=== PATIENT | female | born 1960 | race Caucasian/White ===

== ENCOUNTER → 2017-06-23 | Outpatient (CLI) | payer OTHER, MEDICAID ==
[2016-03-19 21:09] VITALS: BP 112/83
[2017-06-23 10:27] LABS: ALANINE AMINOTRANSFERASE 24 Units/L (12-78); ALBUMIN 3.5 g/dL (3.4-5.0); ALKALINE PHOSPHATASE 99 Units/L (46-116); ASPARTATE AMINO TRANSFERASE 19 Units/L (15-37); BLOOD UREA NITROGEN 17 mg/dL (7-18); CARBON DIOXIDE 28.1 mmol/L (21-32); CHLORIDE 105 mmol/L (98-107); CHOL/HDL RATIO 4.5 (0.0-5.0); CHOLESTEROL 174 mg/dL (0-200); CREATININE 1.21 mg/dL (0.55-1.02); HDL CHOLESTEROL 39 mg/dL (40-60); SODIUM 143 mmol/L (136-145); TOTAL PROTEIN 7.2 g/dL (6.4-8.2); TRIGLYCERIDES 163 mg/dL (0-150); TSH (3RD GENERATION) 1.629 uIU/mL (0.358-3.74); eGFR BLACK RACES 59 (>60); eGFR NON BLACK RACES 49 (>60)
== END ==
LOC: LAB 09:45
PROVIDERS: ATTEND Physician Assistant
DX: E66.09 Other obesity due to excess calories (principal); Z71.89 Other specified counseling; I10 Essential (primary) hypertension; M15.0 Primary generalized (osteo)arthritis
CPT/HCPCS: 36415; 80053; 80061; 83036; 84443

== ENCOUNTER → 2017-06-30 | Outpatient (CLI) | payer OTHER, MEDICAID ==
[2016-03-19 21:09] VITALS: BP 112/83
--- NOTE | 2017-06-30 11:01 | RAD ---
Examination: Lumbar spine, three views History: Low back pain Findings: Normal curvature, segmentation and alignment. There are small marginal osteophytes at mid l umbar levels. No disc narrowing, pedicle destruction or sacroiliac disease is appreciated. Impression: No acute process. Mild lumbar degenerative spondylosis. Reported By:
== END ==
LOC: RAD 10:23
PROVIDERS: ATTEND Physician Assistant
DX: M54.5 Low back pain (principal); M51.36 Other intervertebral disc degeneration, lumbar region
CPT/HCPCS: 72100

== ENCOUNTER 2017-09-09 15:46 | Emergency (ER) | payer OTHER, MEDICAID ==
[2017-09-09 15:53] VITALS: BP 190/94; BMI 36.8
[2017-09-09] MEDS ORDERED: ADACEL TDaP IM ONE ×2 (16:44→16:47)
--- NOTE | 2017-09-09 17:29 | DR.BITE ---
HPI - Time Seen Time seen: 16:55 - PCP Primary Care Physician: JEREMY HARVEY , - HPI Comment HPI Comment: HISTORY BELOW. - Complaint/Symptoms Chief Complaint Doctor Comments: DOG BITE TONIGHT. SEVERAL PUNCTURE WOUNDS INNER LEFT FOREARM. ONE PUNCTURE WOUND BEHIND LT HAND. Chief Complaint:: PT C/O CLEANING OUT OF A DOG KENNEL AND THAT SHE REACHED DOWN AND PICKED UP THE DOG AND IT BIT HER TO HER RIGHT FA AND RIGHT HAND.. - Nurses notes reviewed Nurses Notes Review: Yes - Source History Provided: Patient - Mode of Arrival Mode of Arrival: Ambulatory - Timing Onset of Chief Complaint: 09/09/17 PMH - PMH Past Medical History: No Past Medical History: GERD, Headaches, Hypertension Past Surgical History: No - Family History History of Family Medical Conditions: No Family Medical History: Cancer, Coronary Artery Disease, Hypertension - Social History Does patient currently use any type of tobacco product: Yes Have you used tobacco products in the last 12 months: Yes Type of Tobacco Use: Cigarettes How many years tobacco product used: 42 Does any household member use tobacco: No Alcohol Use: None Do you use any recreational Drugs:: No Lives With: Family Lives Where: Home - infectious screening In the last 2 months have you had wt loss of >10#?: NO Have you had fever, night sweats or hemotysis?: No Have you traveled outside the country in the last 6 months?: No Isolation: Standard ROS - Review of Systems Constitutional: No Symptoms Reported Eyes: No Symptoms Reported ENTM: No Symptoms Reported Respiratoy: No Symptoms Reported Cardiovascular: No Symptoms Reported Gastrointestinal/Abdominal: No Symptoms Reported Genitourinary: No Symptoms Reported Neurological: No Symptoms Reported Musculoskeletal: No Symptoms Reported, Right, Left, Forearm, Hand Integumentary: Other (PUNTURE WOUND LT HAND AND RT FOREARM.) Hematologic/Lymphatic: No Symptoms Reported Endocrine: No Symptoms Reported All Other Systems: Reviewed and Negative PE - Vital Signs Vital Signs: Temp Pulse Resp BP Pulse Ox 09/09/17 15:48 97.2 F L 80 20 190/94 99 03/19/16 21:05 112/83 - Constitutional Limitations: No Limitations General Appearance: Alert - Head Head Exam: Normal Inspection - Eyes Eye exam: Normal Appearance - ENT ENT Exam: Normal External Ear Exam - Neck Neck Exam: Trachea Midline - Chest Chest Inspection: Symmetric Chest Wall Rise - Respiratory Respiratory Exam: Normal Lung Sounds Bilat Respiratory Exam: Bilateral Clear to Auscultation - Cardiovascular Cardiovascular Exam: Regular Rate, Normal Rhythm, Normal Heart Sounds - Abdominal Exam Abdominal Exam: Normal Bowel Sounds, Soft. negative: Tenderness - Extremities Extremities Exam: Tenderness (LAC ABOVE) - Back Back Exam: Normal Inspection - Neurologic Neurological Exam: Alert, Oriented X3 Cranial Nerve Exam: EOM Function (II, III, IV, ): Normal, Facial Sensation (V) : Normal, Facial Palsy (VII): Normal, Gag reflex (XI): Normal, Spinal Accessory Function (XI): Normal, Tongue Deviation: Normal Upper Motor Neuron Exam: Babinski Sign: Normal - Psychiatric Psychiatric Exam: Normal Affect, Normal Mood - Skin Skin Exam: Erythema Type of Lesion: Laceration (LT INNER FOREARM AND LT HAND.) MDM - Differential Diagnosis Differential Diagnosis: Contusion, Puncture wound Other Differential Diagnosis: LACERATION Course - Treatment Treatment: SEE ORDERS. - Education/Counseling Education/Counseling: Patient, Education Educated On: Diagnosis, Needs for Follow Up - Diagnosis Discharge Problem: Puncture wound Dog bite Qualifiers: Encounter type: initial encounter Qualified Code(s): W54.0XXA - Bitten by dog, initial encounter Laceration of right forearm Qualifiers: Encounter type: initial encounter Qualified Code(s): S51.811A - Laceration without foreign body of right forearm, initial encounter - Discharge Plan Disposition: 01 HOME, SELF-CARE Condition: Stable Prescriptions: Amoxicillin/Potassium Clav [Augmentin 875-125 Tablet] 1 tab PO Q12H #20 tab Ibuprofen [MOTRIN TAB 800 MG *] 800 mg PO Q8H PRN #30 tab PRN Reason: Pain/Inflammation - Follow ups/Referrals Follow ups/Referrals: NFD,None [Primary Care Provider] - 3 days - Instructions Instructions: Puncture Wound, [id number], Animal Bite Additional Instructions: RETURN TO ED IF WORSE.
== END 2017-09-09 17:37 | disposition home or self-care (01) ==
LOC: ER 15:46
DX: S51.811A Laceration without foreign body of right forearm, initial encounter (principal); W54.0XXA Bitten by dog, initial encounter
CPT/HCPCS: 90471; 99282

== ENCOUNTER 2017-12-19 11:25 | Emergency (ER) | payer OTHER, MEDICAID ==
[2017-12-19 11:35] VITALS: BP 132/72; BMI 39.6
--- NOTE | 2017-12-19 11:56 | DR.GENAD ---
HPI - PCP Primary Care Physician: Dr. Lenard Davila - HPI Comment HPI Comment: PAIN ASSOCIATED WITH SOB, NAUSEA AND EDEMA OF LOWER EXTREMITIES. ALSO SORENESS LEFT PRECAUDIAL AREA SINCE RECENT ATTACKS. PCP GAVE HER DIURETIC AND MUSCLE RELAXANT BUT THIS HAS NOT MADE A DIFFERENCE. EPISODE TODAY WAS SEVERE. - Complaint/Symptoms Chief Complaint Doctors Comments: PAIN UNDER BREAST GOING INTO FLANK AREA ON AND OFF FOR FEW WEEKS. Chief Complaint:: Pt c/o several weeks history of intermittent sharp cramping pains under both breast and into flank areas. 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 - Family History History of Family Medical Conditions: Yes Family Medical History: Cancer, [place], Heart Failure, Hypertension - Social History Does patient currently use any type of tobacco product: Yes Have you used tobacco products in the last 12 months: Yes Type of Tobacco Use: Cigarettes Does any household member use tobacco: No Alcohol Use: None Do you use any recreational Drugs:: No Lives With: Family Lives Where: Home - infectious screening In the last 2 months have you had wt loss of >10#?: NO Have you had fever, night sweats or hemotysis?: No Have you traveled outside the country in the last 6 months?: No Isolation: Standard ROS - Review of Systems Constitutional: No Symptoms Reported Eyes: No Symptoms Reported ENTM: No Symptoms Reported Respiratoy: No Symptoms Reported, Short of Breath. negative: Productive Cough, Non-Productive Cough, Wheezing, Hemoptysis Cardiovascular: Chest Pain, Edema Gastrointestinal/Abdominal: Nausea Genitourinary: No Symptoms Reported Neurological: No Symptoms Reported Musculoskeletal: Muscle Pain Integumentary: No Symptoms Reported Hematologic/Lymphatic: No Symptoms Reported Endocrine: No Symptoms Reported All Other Systems: Reviewed and Negative PE - Vital Signs Vitals: Temperature 96.9 F Pulse Rate 87 Respiratory Rate 20 Blood Pressure 132/72 O2 Sat by Pulse Oximetry 98 - General Limitations: No Limitations General Appearance: Alert - Head Head Exam: Normal Inspection - Eyes Eye exam: Normal Appearance - ENT ENT Exam: Normal External Ear Exam External Ear Exam: Normal External Inspection TM/Canal Exam: Bilateral Normal Nose Exam: Normal Nose Exam Mouth Exam: Normal Inspection Throat Exam: Normal Inspection - Neck Neck Exam: Trachea Midline - Chest Chest Inspection: Symmetric Chest Wall Rise - Respiratory Respiratory Exam: Normal Lung Sounds Bilat Respiratory Exam: Bilateral Clear to Auscultation - Cardiovascular Cardiovascular Exam: Regular Rate, Normal Rhythm, Normal Heart Sounds - Abdominal Exam Abdominal Exam: Normal Bowel Sounds, Soft. negative: Tenderness - Extremities Extremities Exam: Normal Inspection - Back Back Exam: Normal Inspection - Neurologic Neurological Exam: Alert, Oriented X3 - Psychiatric Psychiatric Exam: Normal Affect, Normal Mood - Skin Skin Exam: Normal Color MDM - Additional Information Additional Information Obtained From: Family - Differential Diagnosis Differential Diagnosis: CHEST PAIN, RADICULOPATHY, MUSCULOSKELETAL PAIN, PACREATITIS, CHOLECYCSTITI Course - Treatment Treatment: SEE ORDERS. - Education/Counseling Education/Counseling: Patient, Family, Education Educated On: Diagnosis, Needs for Follow Up ROR - Labs Reviewed Laboratory Results Reviewed?: Yes Result Diagrams: 12/19/17 12:05 12/19/17 12:05 Laboratory: WBC 10.2 X10^3/uL (3.6-10.0) H 12/19/17 12:05 RBC 4.56 X10^6/uL (3.5-5.4) 12/19/17 12:05 Hgb 14.9 g/dL (12.0-16.0) 12/19/17 12:05 Hct 42.7 % (36.0-47.0) 12/19/17 12:05 MCV 93.5 fL (80.0-100.0) 12/19/17 12:05 MCH 32.8 pg (27.0-34.0) 12/19/17 12:05 MCHC 35.0 g/dL (33.0-35.0) 12/19/17 12:05 RDW 12.8 % (11.6-16.5) 12/19/17 12:05 Plt Count 240 X10^3/uL (150.0-450.0) 12/19/17 12:05 MPV 8.5 fL (7.4-11.0) 12/19/17 12:05 Neut % (Auto) 70.0 % (42.0-75.0) 12/19/17 12:05 Lymph % (Auto) 20.0 % (21.0-51.0) L 12/19/17 12:05 [place] % (Auto) 6.1 % (0.0-13.0) 12/19/17 12:05 Eos % (Auto) 2.2 % (0.9-2.9) 12/19/17 12:05 Baso % (Auto) 1.7 % (0.2-1.0) H 12/19/17 12:05 Neut # (Auto) 7.2 x10^3/uL (2.2-4.8) H 12/19/17 12:05 Lymph # (Auto) 2.0 X10^3/uL (1.3-2.9) 12/19/17 12:05 [place] # (Auto) 0.6 x10^3/uL (0.3-0.8) 12/19/17 12:05 Eos # (Auto) 0.2 x10^3/uL (0.0-0.2) 12/19/17 12:05 Baso # (Auto) 0.2 X10^3/uL (0.0-0.1) H 12/19/17 12:05 Absolute Nucleated RBC 0.0 /100WBC 12/19/17 12:05 Sodium 136 mmol/L (136-145) 12/19/17 12:05 Corrected Sodium 137 mmol/L (136-145) 12/19/17 12:05 Potassium 4.9 mmol/L (3.5-5.1) 12/19/17 12:05 Chloride 98 mmol/L (98-107) 12/19/17 12:05 Carbon Dioxide 32.6 mmol/L (21-32) H 12/19/17 12:05 BUN 16 mg/dL (7-18) 12/19/17 12:05 Creatinine 1.46 mg/dL (0.55-1.02) H 12/19/17 12:05 Est GFR (MDRD) Af Amer 47 (>60) L 12/19/17 12:05 Est GFR (MDRD) Non-Af 39 (>60) L 12/19/17 12:05 Glucose 131 mg/dL (65-99) H 12/19/17 12:05 Calcium 8.7 mg/dL (8.5-10.1) 12/19/17 12:05 Corrected Calcium TNP 12/19/17 12:05 Total Bilirubin 0.40 mg/dL (0.2-1.0) 12/19/17 12:05 AST 21 Units/L (15-37) 12/19/17 12:05 ALT 30 Units/L (12-78) 12/19/17 12:05 Alkaline Phosphatase 110 Units/L (46-116) 12/19/17 12:05 Creatine Kinase 351 Units/L (26-192) H 12/19/17 12:05 CK-MB (CK-2) < 1.0 ng/mL (0-4.0) 12/19/17 12:05 CK/CKMB % Calc 0.3 % (<4) 12/19/17 12:05 Troponin I < 0.02 ng/mL (0-1.5) 12/19/17 12:05 Total Protein 8.0 g/dL (6.4-8.2) 12/19/17 12:05 Albumin 3.9 g/dL (3.4-5.0) 12/19/17 12:05 Globulin 4.1 g/dL (2.5-4.5) 12/19/17 12:05 Albumin/Globulin Ratio 1.0 Ratio (1.1-2.1) L 12/19/17 12:05 Amylase 70 Units/L (25-115) 12/19/17 12:05 Lipase 227 Units/L (73-393) 12/19/17 12:05 - XRAY XRAY Interpreted by: Radiologist XRAY Findings: REPORT DISCUSS WITH [PATIENT - EKG Rhythm: NSR (EKG NOTED) - Diagnosis Discharge Problem: Musculoskeletal pain Chest pain Qualifiers: Chest pain type: intercostal pain Qualified Code(s): R07.82 - Intercostal pain - Discharge Plan Disposition: 01 HOME, SELF-CARE Condition: Stable - Follow ups/Referrals Follow ups/Referrals: NFD,None [Primary Care Provider] - 3 days - Instructions Instructions: Nonspecific Chest Pain, Musculoskeletal Pain Additional Instructions: RETURN TO ED IF WORSE.
[2017-12-19 12:16] LABS: BASOPHILS # (AUTO) 0.2 X10^3/uL (0.0-0.1); BASOPHILS % (AUTO) 1.7 % (0.2-1.0); EOSINOPHILS # (AUTO) 0.2 x10^3/uL (0.0-0.2); EOSINOPHILS % (AUTO) 2.2 % (0.9-2.9); HEMATOCRIT 42.7 % (36.0-47.0); HEMOGLOBIN 14.9 g/dL (12.0-16.0); MEAN CORPUSCULAR HEMOGLOBIN 32.8 pg (27.0-34.0); MEAN CORPUSCULAR VOLUME 93.5 fL (80.0-100.0); MEAN PLATELET VOLUME 8.5 fL (7.4-11.0); MONOCYTES # (AUTO) 0.6 x10^3/uL (0.3-0.8); MONOCYTES % (AUTO) 6.1 % (0.0-13.0); NEUTROPHILS # (AUTO) 7.2 x10^3/uL (2.2-4.8); PLATELET COUNT 240 X10^3/uL (150.0-450.0); RED BLOOD COUNT 4.56 X10^6/uL (3.5-5.4); RED CELL DISTRIBUTION WIDTH 12.8 % (11.6-16.5); WHITE BLOOD COUNT 10.2 X10^3/uL (3.6-10.0)
--- NOTE | 2017-12-19 12:35 | RAD ---
Examination: AP chest History: Chest pain Comparison reference 09/18/2016 Findings: Continued normal heart size with clear lungs and pleural spaces. Small stable calcification right lower lung. Impression: No change; no acute abnormality noted. Reported By:
[2017-12-19 12:41] LABS: BLOOD UREA NITROGEN 16 mg/dL (7-18); CALCIUM 8.7 mg/dL (8.5-10.1); CARBON DIOXIDE 32.6 mmol/L (21-32); CHLORIDE 98 mmol/L (98-107); COR NA(FOR HYPERGLY) 137 mmol/L (136-145); CREATININE 1.46 mg/dL (0.55-1.02); SODIUM 136 mmol/L (136-145); TROPONIN I < 0.02 ng/mL (0-1.5); eGFR BLACK RACES 47 (>60); eGFR NON BLACK RACES 39 (>60)
[2017-12-19 12:45] LABS: ALANINE AMINOTRANSFERASE 30 Units/L (12-78); ALBUMIN 3.9 g/dL (3.4-5.0); ALKALINE PHOSPHATASE 110 Units/L (46-116); AMYLASE 70 Units/L (25-115); ASPARTATE AMINO TRANSFERASE 21 Units/L (15-37); CREATINE KINASE 351 Units/L (26-192); CREATINE KINASE MB < 1.0 ng/mL (0-4.0); LIPASE 227 Units/L (73-393)
[2017-12-19 12:52] LABS: CKMB % 0.3 % (<4)
== END 2017-12-19 13:00 | disposition home or self-care (01) ==
LOC: ER 11:37
DX: R07.82 Intercostal pain (principal); M79.1 Myalgia; R73.9 Hyperglycemia, unspecified
CPT/HCPCS: 36415; 71045; 80053; 82150; 82550; 82553; 83690; 84484; 85025; 93005; 93010; 99283